=== PATIENT | male | born 1950 | race Hispanic/Latino ===

== ENCOUNTER 2018-01-26 09:06 | Day surgery (SDC) | payer MEDICARE, MEDICAID ==
[2016-01-27 11:17] VITALS: BMI 21.2
[2018-01-26] MEDS ORDERED: Lidocaine 2% Inj (20ml) ONE (09:30)
[2018-01-26] MEDS ORDERED: Iodixanol 320 MG/ML 200 ML BOTTLE IV ONE (09:31)
[2018-01-26] MEDS ORDERED: Iodixanol 320 MG/ML 100 ML BOTTLE IV ONE (09:31)
[2018-01-26] MEDS ORDERED: Midazolam 2 MG/2 ML VIAL ONE ×2 (09:31→09:59)
[2018-01-26 09:49] LABS: BASO # 0.02 K/mm3 (0.0-2.0); BASO % 0.4 % (0.0-3.0); EOS # 0.3 (0.0-0.7); EOS % 5.8 % (1.5-5.0); GRAN # 2.37 (1.4-6.5); GRAN % 52.8 % (50.0-68.0); HEMOGLOBIN 15.5 g/dL (14.0-18.0); LYMPH # 1.5 (1.2-3.4); LYMPH % 34.1 % (22.0-35.0); MEAN CELL VOLUME 98.9 fl (80.0-105.0); MEAN CORPUSCULAR HEMOGLOBIN 35.6 pg (25.0-35.0); MEAN PLATELET VOLUME 9.6 fl (7.0-11.0); MONO # 0.3 (0.1-0.6); MONO % 6.9 % (1.0-6.0); RBC 4.36 10^6/uL (3.5-6.1); RED CELL DISTRIBUTION WIDTH 14.7 % (11.5-14.5); WHITE BLOOD COUNT 4.5 10^3/ul (4.5-11.0)
[2018-01-26 09:58] LABS: BLOOD UREA NITROGEN 13 mg/dL (7-21); CALCIUM 9.7 mg/dL (8.4-10.5); GFR AFRICAN-AMERICAN > 60; GFR NON-AFRICAN AMERICAN > 60; HDL CHOLESTEROL 78 mg/dL (29-60)
[2018-01-26 10:06] LABS: INR 0.94 (0.93-1.08); PARTIAL THROMBOPLASTIN TIME 32.5 Seconds (25.1-36.5); PROTHROMBIN TIME 10.8 SECONDS (9.4-12.5)
[2018-01-26 10:09] LABS: LDL CHOLESTEROL 108 mg/dL (0-129)
[2018-01-26] MEDS ORDERED: Sodium Chloride 0.45% 1,000 ML IV SCH (13:00)
[2018-01-26 14:44] VITALS: TEMP 98
[2018-01-26 16:23] VITALS: BP 150/75; PULSE 67; RESP 20; O2SAT 99
--- NOTE | 2018-02-01 06:28 | VAS ---
DATE: 01/26/2018 SURGEON: Rich Barboza MD INDICATION: 1. Claudication. 2. Peripheral vascular disease. PROCEDURE: Abdominal angiogram with peripheral runoff. TECHNIQUE: After informed consent, patient was prepped and draped in the usual fashion. Patient received moderate sedation by sc. Patient received lidocaine in the left femoral area for local anesthesia. Using a Cook needle, left femoral artery was entered. A 5-Mauritian sheath was placed using Seldinger technique using Omni flush catheter. This was placed in the abdominal aorta. Subsequent DSA angiograms were taken from the abdominal aorta to the feet in the step haque fashion. After procedure, the sheath was removed and manual pressure was used for hemostasis. Patient tolerated the procedure well. RESULTS: 1. Abdominal aorta showed no signs of aneurysm. 2. Right renal artery was patent. 3. Left renal artery was patent. 4. Right side: Right common iliac had mild disease, there was a stent, which was patent. The femoral artery was patent. The superficial femoral had serious disease in the proximal and mid. The popliteal was patent. There was one vessel runoff. 5. Left lower extremity, there was mild disease at the common iliac. The femoral was patent. The superficial femoral showed serious disease in the proximal portion. The popliteal was patent. There was a 3-vessel runoff with severe disease in all three vessels. CONCLUSIONS: 1. Patent stent in the right iliac artery. 2. Serious or significant peripheral vascular disease in the left and right superficial femoral artery. 3. Tibial artery disease. RECOMMENDATIONS: Continue walking program. We will consider ANGLESMITH HELPER of the superficial femoral arteries bilaterally. Rich Barboza MD cc: Jered Leon MD
== END 2018-01-26 18:30 | disposition home or self-care (01) ==
LOC: SDSVAS 09:06
PROVIDERS: ATTEND Internal Medicine Cardiovascular Disease
DX: I73.9 Peripheral vascular disease, unspecified (principal); I10 Essential (primary) hypertension; I25.10 Atherosclerotic heart disease of native coronary artery without angina pectoris
CPT/HCPCS: 36200; 36415; 75630; 80048; 80061; 85025; 85610; 85730; 86850; 86900; 99152; C1769; C1887; C1894; J0360; J1644; J2250; J3010; J7030; J7040; Q9966; Q9967

== ENCOUNTER 2019-01-16 15:06 | Emergency (ER) | payer MEDICARE, MEDICAID ==
[2019-01-16 15:12] VITALS: BMI 21.6
--- NOTE | 2019-01-16 15:20 | ED PDOC ---
Arrival/HPI - General Chief Complaint: Trauma Time Seen by Provider: 01/16/19 15:30 Historian: Patient - History of Present Illness Narrative History of Present Illness (Text): 01/16/19 15:20 68 y/o male, pmh including htn/hypothyroidism/lt. lung cancer with lobetomy, previous smoker, nkda, c/o rt. elbow/wrist/knee pain s/p fall about 2 weeks ago. Pt. stated that he fall about 2 weeks ago on the rt. knee, been having rt. knee pain, walking about 5 days ago and fall on the rt. elbow/wrist region, no head/neck/back/chest/abdomen/pelvic injury, no LOC, able to recall the whole event, no rash, no dizziness, no other medical or psychological complaints. Past Medical History - Provider Review Nursing Documentation Reviewed: Yes Primary Care Provider: Soham Hawkins K - Infectious Disease Hx of Infectious Diseases: None - Cardiac Hx Hypertension: Yes Hx Pacemaker: No - Neurological Hx Paralysis: No - Endocrine/Metabolic Hx Hypothyroidism: Yes - Hematological/Oncological Hx Blood Transfusions: No - Musculoskeletal/Rheumatological Hx Musculoskeletal Disorders: No - Psychiatric Hx Emotional Abuse: No Hx Physical Abuse: No Hx Substance Use: No - Surgical History Hx Appendectomy: Yes - Anesthesia Hx Anesthesia: Yes Hx Anesthesia Reactions: No Hx Malignant Hyperthermia: No - Suicidal Assessment Feels Threatened In Home Enviroment: No Family/Social History - Physician Review Nursing Documentation Reviewed: Yes Family/Social History: Unknown Family HX Smoking Status: Light Smoker < 10 Cigarettes Daily Hx Alcohol Use: Yes Hx Substance Use: No Allergies/Home Meds Allergies/Adverse Reactions: Allergies No Known Allergies Allergy (Verified 02/12/13 14:46) Home Medications: Home Meds Medication Instructions Recorded Confirmed Levothyroxine [Synthroid] 112 mcg PO DAILY 10/01/15 01/16/19 Vitamin E Mixed [Vitamin E] 1,000 unit PO DAILY 10/01/15 01/16/19 Ascorbate Calcium [Vitamin C] 500 mg PO DAILY 01/27/16 01/16/19 Aspirin [Ecotrin] 81 mg PO DAILY 01/27/16 01/16/19 cloNIDine [clonidine HCl] 0.1 mg PO TID 01/27/16 01/16/19 Pravastatin Sodium [Pravachol] 20 mg PO DAILY 01/25/18 01/16/19 Pyridoxine [Vitamin B6] 100 mg PO DAILY 01/25/18 01/16/19 Valsartan 320 mg PO DAILY 01/25/18 01/16/19 Review of Systems - Review of Systems Constitutional: absent: Fatigue, Fevers Eyes: absent: Vision Changes ENT: absent: Hearing Changes Respiratory: absent: SOB, Cough Cardiovascular: absent: Chest Pain Gastrointestinal: absent: Abdominal Pain, Diarrhea, Nausea, Vomiting, Anorexia Musculoskeletal: absent: Arthralgias, Back Pain Skin: absent: Rash, Pruritis Neurological: absent: Headache, Dizziness Psychiatric: absent: Anxiety, Depression, Suicidal Ideation Physical Exam Vital Signs Reviewed: Yes Vital Signs Temp Pulse Resp BP Pulse Ox 01/16/19 15:14 97.5 F L 98 H 18 163/93 H 96 Temperature: Afebrile Blood Pressure: Hypertensive Pulse: Regular Respiratory Rate: Normal Appearance: Positive for: Well-Appearing, Non-Toxic, Comfortable Pain Distress: Moderate Mental Status: Positive for: Alert and Oriented X 3 - Systems Exam Head: Present: Atraumatic, Normocephalic. No: Tenderness, Contusion, Swelling, Ecchymosis, Abrasion, Laceration, Other Pupils: Present: PERRL Extroacular Muscles: Present: EOMI Conjunctiva: Present: Normal Ears: Present: Normal, NORMAL TM, Normal Canal. No: Erythema Mouth: Present: Moist Mucous Membranes Pharnyx: Present: Normal. No: ERYTHEMA, EXUDATE, TONSILS ENLARGED, Peritonsilar Swelling, Uvular Deviation, Muffled/Hoarse Voice Nose (External): Present: Atraumatic. No: Abrasion, Contusion, Laceration Nose (Internal): Present: Normal Inspection, No Active Bleeding. No: Rhinorrhea, Septal Hematoma, Epistaxis Neck: Present: Normal Range of Motion, Trachea Midline. No: Meningeal Signs, MIDLINE TENDERNESS, Paraspinal Tenderness, Lymphadenopathy Respiratory/Chest: Present: Clear to Auscultation, Good Air Exchange. No: Respiratory Distress, Accessory Muscle Use, Wheezes, Decreased Breath Sounds, Rales, Retracting, Rhonchi, Tachypneic, Tender to Palpation Cardiovascular: Present: Regular Rate and Rhythm, Normal S1, S2. No: Murmurs Abdomen: No: Tenderness, Distention, Peritoneal Signs, Rebound, Guarding Back: Present: Normal Inspection. No: CVA Tenderness, Midline Tenderness, Paraspinal Tenderness, Pain with Leg Raise, Decubitus Ulcer Upper Extremity: Present: Normal Inspection, Normal ROM, NORMAL PULSES, Tenderness, Swelling, Neurovascularly Intact, Capillary Refill < 2s, Other (RUE: +ttp on the rt. medial elbow and rt. wrist region with mild swelling and resolving ecchymosis, resolving ecchymosis on the rt. wrist region as well, skin intact, no laceration or abrasion, FROM without limitaiton, sensation intact, motor 5/5, +radial pulse, capillary refill< 2 seconds, neurovascular intact. ). No: Cyanosis, Edema, Deformity Lower Extremity: Present: Normal Inspection, Normal ROM, Tenderness, Neurovascularly Intact, Capillary Refill < 2 s, Other (Rt. knee: +ttp on the anterior knee with no swelling, negative omid and cody signs, no ecchymosis, sensation intact, motor 5/5, +DPPT pulses, capillary refill< 2 seconds, neurovascular intact. ). No: Edema, NORMAL PULSES, Swelling, Deformity Neurological: Present: GCS=15, CN II-XII Intact, Speech Normal, Motor Func Grossly Intact, Normal Cerebellar Funct, Gait Normal, Memory Normal Skin: Present: Warm, Dry, Normal Color. No: Rashes Psychiatric: Present: Alert, Oriented x 3, Normal Insight, Normal Concentration Medical Decision Making ED Course and Treatment: 01/16/19 15:42 -Rt. knee/elbow/wrist xray -Percocet -observe and reassess 01/16/19 18:05 -Rt. knee xray: ER wet read: no fracture or dislocation. -Rt. elbow xray: ER wet read: +rt. olecranon fracture. -Rt. wrist xray: ER wet read: questionable avulsed fracture noted on the distal radial head. -Pt. request Dr. Tsai as orthopedic. -RUE Venuous doppler: No sonographic evidence for deep venous thrombosis in the visualized segments of the right upper extremity. -I spoke to Dr. Tsai and reviewed the xrays together, he recommend to long arm splint/sling the patient/copy of the xray and ask the patient to call and see him tomorrow as he would scheduled for outpatient surgery. He request routine lab works/ekg/chest ray for preop and he would follow it up. -Long arm splint applied covering the wrist region for stabilization of the wrist with neurovascular intact. 01/16/19 20:36 -Chest xray show rt. lung mass, CT chest ordered -CT Chest Chronic changes both lungs. There is a rounded irregular soft tissue mass measuring approximately 2.7 x 2.3 cm at the right lower lobe posteriorly extending to the pleura. Neoplasm is suspected. Clinical correlation advised. -EKG: SR @ 71 BPM with PAC, no acute ST or T wave changes compared with previous ekgs. -Labs are non significant -I discussed with all these results with the patient including possible lung cancer which he understood as he had it before, he would need pulmonary/oncologist/internal medicine follow up in 2 days. Pt. would like to be discharged. -Discharge home with long arm/wrist splint, sling, low dose percocet for pain, ice compression, follow up with your own pmd/vein access technician/oncologist/internal medicine/marketing operations assistant within 2 days, see Dr. Tsai tomorrow at 10am for continuity of care including scheduling for your surgery to go over your result and scheduled for surgery, return to the ER for any new or worsening signs or symptoms. - RAD Interpretation Radiology Orders: -Rt. knee xray Date of service: 01/16/2019 PROCEDURE: Right Knee Radiographs. HISTORY: fall x 2 weeks, pain COMPARISON: None. TECHNIQUE: 2 views obtained. FINDINGS: BONES: Normal. No fracture. JOINTS: Normal. No osteoarthritis. JOINT EFFUSION: None. OTHER FINDINGS: None. IMPRESSION: Normal radiographs of the right knee. Concordant results with the preliminary interpretation rendered by the emergency department physician\KARLO at the conclusion of the procedure. -Rt. elbow xray Date of service: 01/16/2019 PROCEDURE: Radiographs of the right elbow. HISTORY: fall x 2 weeks, pain COMPARISON: No prior. TECHNIQUE: 3 views obtained. FINDINGS: BONES: Avulsed olecranon fracture. JOINTS: Normal. No osteoarthritis. SOFT TISSUES: Soft tissue swelling attests to the acuity of the fracture. JOINT EFFUSION: None. OTHER FINDINGS: None. IMPRESSION: Avulsed olecranon fracture/acute. Marked soft tissue swelling noted. Concordant results with the preliminary interpretation rendered by the emergency department physicianCAREY at the conclusion of the procedure. --- -Rt. wrist xray Date of service: 01/16/2019 PROCEDURE: Right Wrist Radiographs. HISTORY: fall x 2 weeks, pain COMPARISON: None. TECHNIQUE: 4 views obtained. FINDINGS: BONES: Small avulsed fragment or subcutaneous soft tissue foreign body adjacent to the radioscaphoid joint. This is on the palm are aspect of the wrist. The finding is marked on the study for review. JOINTS: Normal. No dislocation. SOFT TISSUES: Normal. OTHER FINDINGS: None. IMPRESSION: Avulsed fracture fragments/foreign body radial side of the right wrist. -RUE Venuous doppler: PROCEDURE: Right upper extremity venous US CLINICAL HISTORY: Arm pain and swelling Evaluate for deep venous thrombosis. PHYSICIAN(S): Jorden Bishop M.D FINDINGS: The visualized rightinternal jugular vein is sonographically normal and compressible. No evidence of obstruction or thrombus is seen. The visualized segments of the right subclavian vein are patent with normal waveforms. No sonographic evidence of obstruction or thrombosis is seen. The visualized deep venous system of the proximal right upper extremity is sonographically normal and compressible. IMPRESSION: 1. No sonographic evidence for deep venous thrombosis in the visualized segments of the right upper extremity. Chest xray: Date of service: 01/16/2019 HISTORY: pre op COMPARISON: 09/21/2016. Relevant interventional procedure(s): 09/21/2016 CT biopsy left upper lobe lung mass. FINDINGS: LUNGS: New mass right upper lobe 1.5 x 3.4 cm. Postoperative findings following left lung resection/lobectomy. Previously identified pulmonary mass not visible on the current study. PLEURA: No significant pleural effusion identified, no pneumothorax apparent. CARDIOVASCULAR: No atherosclerotic calcification present Normal. OSSEOUS STRUCTURES: No significant abnormalities. VISUALIZED UPPER ABDOMEN: Normal. OTHER FINDINGS: None. IMPRESSION: New right upper lobe lung mass. Given patient's history, follow-up advised-CT scan of the thorax recommended -------- CT Chest: EXAM: CT Chest without Intravenous Contrast. CLINICAL HISTORY: Right lung mass TECHNIQUE: Axial computed tomography images of the chest without intravenous contrast. 458.64 mGy-cm CONTRAST: Without COMPARISON: None provided. FINDINGS: LUNGS: There is scarring and bullous change present within both lungs particularly the upper lobes and worse right upper lung. There is round and regular soft tissue mass measuring 2.7 x 2.3 cm at right lower lobe posteriorly which extends to the pleura. PLEURAL SPACES: No evidence of pneumothorax. No pleural effusion. HEART: Heart is within normal limits in size and demonstrates atherosclerotic change. LYMPH NODES: No lymphadenopathy is evident. BONES: Mild compression deformity of a mid to lower thoracic vertebral body. UPPER ABDOMEN: Gallstones are incidentally noted. IMPRESSION: Chronic changes both lungs. There is a rounded irregular soft tissue mass measuring approximately 2.7 x 2.3 cm at the right lower lobe posteriorly extending to the pleura. Neoplasm is suspected. Clinical correlation advised. Electronically signed on January 16, 2019 8:31:59 PM EDT by: Derrick Marquez M.D., Certified by [facility], Diagnostic Radiology Mail Handler Equipment Operator: Radiologist - PA / VALVE MACHINE OPERATOR / Resident Statement / has reviewed & agrees with the documentation as recorded. Disposition/Present on Arrival - Present on Arrival Any Indicators Present on Arrival: No History of DVT/PE: No History of Uncontrolled Diabetes: No Urinary Catheter: No History of Decub. Ulcer: No History Surgical Site Infection Following: None - Disposition Have Diagnosis and Disposition been Completed?: Yes Diagnosis: Closed olecranon fracture, Wrist fracture, closed, Fall, Lung mass Disposition: HOME/ ROUTINE Disposition Time: 18:02 Patient Plan: Discharge Patient Problems: Current Active Problems Problem Status Onset Closed olecranon fracture Acute Wrist fracture, closed Acute Fall Acute Lung mass Acute Condition: IMPROVED Additional Instructions: -Discharge home with long arm/wrist splint, sling, low dose percocet for pain, ice compression, follow up with your own pmd/vein access technician/oncologist/internal medicine/marketing operations assistant within 2 days, see Dr. Tsai tomorrow at 10am for continuity of care including scheduling for your surgery to go over your result and scheduled for surgery, return to the ER for any new or worsening signs or symptoms. Prescriptions: Acetaminophen/Oxycodone Hydr [Oxycodone and Acetaminophen 325 mg-2.5 mg] 1 tab PO TID PRN #12 tab PRN Reason: Other Referrals: Hussein Gillespie MD [Staff Provider] - Follow up with primary Jean Beckett DO [Staff Provider] - Follow up with primary Robert Solorzano MD [Staff Provider] - Follow up with primary Citlaly Dueñas MD [Staff Provider] - Follow up with primary Dewayne Sharif MD [Staff Provider] - Follow up with primary Forms: [facility] ([place]), WORK NOTE
[2019-01-16] MEDS ORDERED: Oxycodone/Acetaminophen 5/325 mg Tab PO STA (15:39)
--- NOTE | 2019-01-16 16:59 | US ---
PROCEDURE: Right upper extremity venous US CLINICAL HISTORY: Arm pain and swelling Evaluate for deep venous thrombosis. PHYSICIAN(S): Jorden Bishop M.D FINDINGS: The visualized rightinternal jugular vein is sonographically normal and compressible. No evidence of obstruction or thrombus is seen. The visualized segments of the right subclavian vein are patent with normal waveforms. No sonographic evidence of obstruction or thrombosis is seen. The visualized deep venous system of the proximal right upper extremity is sonographically normal and compressible. IMPRESSION: 1. No sonographic evidence for deep venous thrombosis in the visualized segments of the right upper extremity.
--- NOTE | 2019-01-16 17:27 | RAD ---
Date of service: 01/16/2019 PROCEDURE: Right Wrist Radiographs. HISTORY: fall x 2 weeks, pain COMPARISON: None. TECHNIQUE: 4 views obtained. FINDINGS: BONES: Small avulsed fragment or subcutaneous soft tissue foreign body adjacent to the radioscaphoid joint. This is on the palm are aspect of the wrist. The finding is marked on the study for review. JOINTS: Normal. No dislocation. SOFT TISSUES: Normal. OTHER FINDINGS: None. IMPRESSION: Avulsed fracture fragments/foreign body radial side of the right wrist.
--- NOTE | 2019-01-16 17:28 | RAD ---
Date of service: 01/16/2019 PROCEDURE: Radiographs of the right elbow. HISTORY: fall x 2 weeks, pain COMPARISON: No prior. TECHNIQUE: 3 views obtained. FINDINGS: BONES: Avulsed olecranon fracture. JOINTS: Normal. No osteoarthritis. SOFT TISSUES: Soft tissue swelling attests to the acuity of the fracture. JOINT EFFUSION: None. OTHER FINDINGS: None. IMPRESSION: Avulsed olecranon fracture/acute. Marked soft tissue swelling noted. Concordant results with the preliminary interpretation rendered by the emergency department physician procedure.
--- NOTE | 2019-01-16 17:28 | RAD ---
Date of service: 01/16/2019 PROCEDURE: Right Knee Radiographs. HISTORY: fall x 2 weeks, pain COMPARISON: None. TECHNIQUE: 2 views obtained. FINDINGS: BONES: Normal. No fracture. JOINTS: Normal. No osteoarthritis. JOINT EFFUSION: None. OTHER FINDINGS: None. IMPRESSION: Normal radiographs of the right knee. Concordant results with the preliminary interpretation rendered by the emergency department physician procedure.
--- NOTE | 2019-01-16 18:27 | RAD ---
Date of service: 01/16/2019 HISTORY: pre op COMPARISON: 09/21/2016. Relevant interventional procedure(s): 09/21/2016 CT biopsy left upper lobe lung mass. FINDINGS: LUNGS: New mass right upper lobe 1.5 x 3.4 cm. Postoperative findings following left lung resection/lobectomy. Previously identified pulmonary mass not visible on the current study. PLEURA: No significant pleural effusion identified, no pneumothorax apparent. CARDIOVASCULAR: No atherosclerotic calcification present Normal. OSSEOUS STRUCTURES: No significant abnormalities. VISUALIZED UPPER ABDOMEN: Normal. OTHER FINDINGS: None. IMPRESSION: New right upper lobe lung mass. Given patient's history, follow-up advised-CT scan of the thorax recommended
[2019-01-16 19:02] LABS: BASO # 0.01 K/mm3 (0.0-2.0); BASO % 0.2 % (0.0-3.0); EOS # 0.1 (0.0-0.7); EOS % 1.6 % (1.5-5.0); HEMOGLOBIN 13.6 g/dL (14.0-18.0); LYMPH # 1.8 (1.2-3.4); LYMPH % 28.8 % (22.0-35.0); MEAN CELL VOLUME 99.7 fl (80.0-105.0); MEAN CORPUSCULAR HEMOGLOBIN 34.6 pg (25.0-35.0); MEAN CORPUSCULAR HGB CONC 34.7 g/dl (31.0-37.0); MEAN PLATELET VOLUME 9.5 fl (7.0-11.0); MONO # 0.5 (0.1-0.6); MONO % 7.4 % (1.0-6.0); RBC 3.93 10^6/uL (3.5-6.1); RED CELL DISTRIBUTION WIDTH 13.9 % (11.5-14.5); WHITE BLOOD COUNT 6.1 10^3/uL (4.5-11.0)
[2019-01-16 19:10] LABS: INR 0.96; PARTIAL THROMBOPLASTIN TIME 36.5 Seconds (26.9-38.3); PROTHROMBIN TIME 10.7 SECONDS (9.4-12.5)
[2019-01-16 19:11] LABS: ALB/GLOB RATIO 1.1 (1.1-1.8); ALBUMIN 3.8 g/dL (3.0-4.8); ALT/SGPT 18 U/L (7-56); AST/SGOT 32 U/L (17-59); BLOOD UREA NITROGEN 17 mg/dL (7-21); CALCIUM 8.9 mg/dL (8.4-10.5); GFR NON-AFRICAN AMERICAN > 60
[2019-01-16 19:23] VITALS: RESP 17; TEMP 97.3
[2019-01-16 20:09] VITALS: BP 163/87; PULSE 78; O2SAT 96
--- NOTE | 2019-01-17 10:43 | CARD ---
APPROVED REPORT Date of service: 01/16/2019 EKG Measurement Heart [id number] ID [id number] <Conclusion> Sinus rhythm with premature atrial complexes Possible Left atrial enlargement Left axis deviation Left ventricular hypertrophy Inferior infarct, age undetermined Abnormal ECG
--- NOTE | 2019-01-17 12:25 | CT ---
Date of service: 01/16/2019 PROCEDURE: CT Chest without contrast HISTORY: rt. lung mass COMPARISON: January 16, 2019. Portable chest. TECHNIQUE: Contiguous axial images were obtained through the chest without intravenous contrast enhancement. Sagittal and coronal reconstructions were performed. Radiation dose: Total exam DLP = 458.64 mGy-cm. This CT exam was performed using one or more of the following dose reduction techniques: Automated exposure control, adjustment of the mA and/or kV according to patient size, and/or use of iterative reconstruction technique. FINDINGS: LUNGS: 2.4 x 3 cm mass superior segment right lower lobe with adjacent Samuel attic changes extending to the periphery pleura. Innumerable bilateral subcentimeter pulmonary nodules. Bullous changes predominate in the right lung. Postoperative changes left lung related to resection previously identified mass (biopsy on a prior CT scan 09/21/2016). MEDIASTINUM: Unremarkable thoracic aorta. No aneurysm. Normal sized heart. Main pulmonary artery unremarkable. No vascular congestion. No lymphadenopathy. Atherosclerotic calcification and mural plaque present. Findings are seen throughout the aorta which is non aneurysmal. PLEURA: No pleural fluid. No pneumothorax. BONES: No fracture. No destructive lesion. UPPER ABDOMEN: Cholelithiasis without CT evidence of acute cholecystitis. OTHER FINDINGS: None. IMPRESSION: Spiculated mass superior segment right lower lobe consistent with neoplasm, a finding not seen previously. Innumerable subcentimeter pulmonary nodules bilaterally likely metastatic disease. Cholelithiasis without CT evidence of acute cholecystitis. Concordant results (preliminary interpretation) provided by [facility]. Procedure Completed: 19:33. Preliminary Report: Interpreted and electronically signed: 20:31. Final Interpretation: 12:21. January 17, 2019.
== END 2019-01-16 21:35 | disposition home or self-care (01) ==
LOC: ED 15:06
DX: S52.021A Displaced fracture of olecranon process without intraarticular extension of right ulna, initial encounter for closed fracture (principal); S52.501A Unspecified fracture of the lower end of right radius, initial encounter for closed fracture; W19.XXXA Unspecified fall, initial encounter; Z91.81 History of falling; R91.8 Other nonspecific abnormal finding of lung field; I10 Essential (primary) hypertension; F17.210 Nicotine dependence, cigarettes, uncomplicated